=== PATIENT | female | born 1960 | race Caucasian/White ===

== ENCOUNTER 2023-12-21 15:42 | Emergency (ER) | payer BC ==
[2023-12-21 16:18] VITALS: RESP 18
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
[2023-12-21] MEDS: ceFAZolin 1,000 MG VIAL (IM USE) IM STA (16:44)
[2023-12-21] MEDS: KETOROLAC 15 MG/ML 1 ML VIAL IM STA (16:45)
[2023-12-21] MEDS: DIPH,PERTUS(ACELL)TETVAC-LF 0.5 ML VIAL IM ONE (16:50)
--- NOTE | 2023-12-21 17:15 | XR ---
EXAMINATION TYPE: XR finger LT TECHNIQUE: 3 views coned down left fifth finger DATE OF EXAM: 12/21/2023 Comparison: None Clinical History: 63-year-old female 5th digit, pain and fall Findings: There is dorsal dislocation at the fifth PIP joint. No acute fracture seen. There may be some mild alatorre bcutaneous air at the fourth web space just adjacent. Impression: Dorsal dislocation at the fifth PIP joint with soft tissue swelling. Possible laceration given subtle subcutaneous air just adjacent in the fourth webspace.
[2023-12-21] MEDS: LIDOCAINE 1% INJ 10MG/ML (20 ML MDV) SQ ONE (17:43)
--- NOTE | 2023-12-21 19:10 | XR ---
EXAMINATION TYPE: XR finger LT, 2 views fifth finger DATE OF EXAM: 12/21/2023 Comparison: Earlier today Clinical History: 63-year-old female 5th digit pain, relocation Findings: Some residual soft tissue air within the fourth webspace and some hyperdense external debris. While t here is satisfactory interval reduction of the PIP joint, there is now [place] neck deformity. Impression: While there has been interval satisfactory reduction of the fifth PIP joint, there is now [place] neck d eformity noted. This may indicate injury to the fifth flexor tendon insertion.
[2023-12-21 19:12] VITALS: BP 145/87; PULSE 81; TEMP 98
== END 2023-12-21 19:32 | disposition home or self-care (01) ==
LOC: EC 15:42
DX: S61.217A Laceration without foreign body of left little finger without damage to nail, initial encounter (principal); Z88.2 Allergy status to sulfonamides; V19.9XXA Pedal cyclist (driver) (passenger) injured in unspecified traffic accident, initial encounter; Y93.I9 Activity, other involving external motion
CPT/HCPCS: 73140; 99284; 12002; 96372 ×2; J0690; J2001; J1885